=== PATIENT | male | born 1955 | race Caucasian/White ===

== ENCOUNTER 2017-05-10 10:42 | Inpatient (IN) | payer OTHER ==
[2017-05-10] MEDS ORDERED: NA CHLORIDE 0.9% 1,000 ML ONE (11:37)
[2017-05-10 12:05] LABS: Urine Blood 3+ (NEG); Urine Glucose TRACE (NEG); Urine Protein 3+ (NEG); Urine pH >8.5 (5.0-7.0)
[2017-05-10 12:18] LABS: Absolute Lymphocytes (CBC) 0.9 K/uL (0.7-4.9); Absolute Monocytes 0.4 K/uL (0.1-1.3); Absolute Neutrophil 5.6 K/uL (1.8-8.0); Basophils % 0.8 % (0-1.3); Eosinophils % 1.1 % (0-4.4); Hematocrit 38.5 % (39.6-49.0); Lymphocytes % 12.3 % (15.3-44.8); MCH 31.7 pg (27.0-35.0); MCV 91.1 fL (80-100); MPV 7.8 fL (7.6-11.3); Monocytes % 5.7 % (3.3-12.3); RBC Red Blood Cell Count 4.22 M/uL (4.33-5.43)
[2017-05-10 12:22] LABS: Protime INR 1.02
[2017-05-10 12:24] LABS: Bicarbonate 28 mEq/L (21-31); Glucose Level 107 mg/dL (65-120); Potassium 3.8 mEq/L (3.6-5.0); Sodium Level 138 mEq/L (135-145)
[2017-05-10 12:25] LABS: BUN Blood Urea Nitrogen 13 mg/dL (6-20); Glomerular Filtration Rate > 90 mL/min (=/>90)
[2017-05-10] MEDS ORDERED: NACL 0.9% IRR SOLN 2,000 ML IRR ONE ×4 (13:01→16:18)
--- NOTE | 2017-05-10 13:33 | RAD REPORT ---
EXAM DESCRIPTION: CT - Abdomen Pelvis W Contrast - 05/10/2017 1:14 pm CLINICAL HISTORY: Abdominal pain with nausea. COMPARISON: none. TECHNIQUE: Computed axial tomography of the abdomen pelvis was obtained. 100 cc Isovue-300 was admin istered intravenously. Oral contrast was not requested which limits evaluation of bowel. All CT scans are performed using dose optimization technique as appropriate and may include automated exposure control or mA/KV adjustment according to patient size. FINDINGS: The liver, pancreas, and adrenals appear unremarkable. The spleen measures 15 centimeters Mild bilateral hydronephrosis is present. Parapelvic renal cysts are present. A 7 centimeter mass is present within the posterior bladder. The prostate gland is mildly enlarged. There is no evidence of diverticulitis. The appendix is normal. Small bilateral inguinal hernias cont ain fat. 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 A less like ly consideration is that this represents the mass arises from the prostate gland. Partial compression upon the ureterovesical junctions result in mild hydroureter/hydronephrosis
--- NOTE | 2017-05-10 14:13 | ER ---
Nurse's Notes [facility] Name: Herrera Liao Age: 61 yrs Sex: Male : 1955 Arrival Date: 05/10/2017 Time: 10:45 Bed 13 Private MD: Bruce Eng F Diagnosis: Hematuria;7cm bladder mass Presentation: 05/10 10:47 Presenting complaint: Patient states: Painless hematuria since this morning x2. la1 Transition of care: patient was not received from another setting of care. Onset of symptoms was May 10, 2017. Care prior to arrival: None. 10:47 Method Of Arrival: Ambulatory la1 10:47 Acuity: CARLOS 3 la1 Historical: - Allergies: 10:50 No Known Allergies; la1 - Home Meds: 10:50 Synthroid 125 mcg Oral tab 1 tab once daily [Active]; Zocor 20 mg Oral tab 1 tab once la1 daily [Active]; - PMHx: 10:50 Kidney stones; High Cholesterol; la1 - PSHx: 10:50 hip sx; la1 - Immunization history:: Adult Immunizations up to date. - Social history:: Smoking status: Patient/guardian denies using tobacco. Screenin:15 Abuse screen: Denies threats or abuse. Denies injuries from another. Nutritional ph screening: No deficits noted. Tuberculosis screening: No symptoms or risk factors identified. Fall Risk None identified. Assessment: 11:10 General: Appears in no apparent distress. comfortable, slender, well groomed, Behavior ph is calm, cooperative, appropriate for age, Denies fever, feeling ill. Pain: Denies pain. Complains of pain in states, " I have a full feeling in my lower stomach but not really pain.". Neuro: Level of Consciousness is awake, alert, obeys commands, Oriented to person, place, time, situation. Cardiovascular: Denies chest pain, shortness of breath, Capillary refill < 3 seconds in bilateral fingers Patient's skin is warm and dry. Respiratory: Airway is patent Respiratory effort is even, unlabored, Respiratory pattern is regular, symmetrical, Denies shortness of breath. GI: No signs and/or symptoms were reported involving the gastrointestinal system. : Urine is vik blood, multiple clots noted Reports "difficulty" voiding. Derm: Skin is intact, is healthy with good turgor, Skin is pink, warm \\T\\ dry. Musculoskeletal: Circulation, motion, and sensation intact. Range of motion: intact in all extremities. 12:30 Reassessment: Patient appears in no apparent distress at this time. Patient and/or ph family updated on plan of care and expected duration. Pain level reassessed. Patient is alert, oriented x 3, equal unlabored respirations, skin warm/dry/pink. Pt resting quietly, awaiting lab results and CT scan, approx 250 mL dark bloody urine emptied from urinal at bedside. 13:45 Reassessment: Patient appears in no apparent distress at this time. Patient and/or ph family updated on plan of care and expected duration. Pain level reassessed. Patient is alert, oriented x 3, equal unlabored respirations, skin warm/dry/pink. 3 way Pearson inserted for bladder irrigation per provider order, pt tolerated well, 650 mL bloody urine returned awaiting room assignment. 15:00 Reassessment: Patient appears in no apparent distress at this time. Patient and/or ph family updated on plan of care and expected duration. Pain level reassessed. Patient is alert, oriented x 3, equal unlabored respirations, skin warm/dry/pink. Pt taken to inpatient room via stretcher. Vital Signs: 10:50 BP 157 / 95; Pulse 87; Resp 16; Temp 97.2; Pulse Ox 100% on R/A; Weight 83.01 kg; la1 Height 5 ft. 10 in. (177.80 cm); 11:21 BP 151 / 105; Pulse 83; Resp 16; Pulse Ox 100% on R/A; mh5 12:30 BP 137 / 95; Pulse 82; Resp 18; Pulse Ox 99% on R/A; ph 13:30 BP 120 / 97; Pulse 84; Resp 18; Temp 97.5; Pulse Ox 98% on R/A; ph 14:30 BP 131 / 83; Pulse 79; Resp 18; Pulse Ox 99% on R/A; ph 10:50 Body Mass Index 26.26 (83.01 kg, 177.80 cm) la1 ED Course: 10:45 Patient arrived in ED. as 10:45 Bruce Eng MD is Private Physician. as 10:48 Triage completed. la1 10:49 Chastity Parisi FNP-C is PHCP. kb 10:49 Butch Hale MD is Attending Physician. kb 10:50 Arm band placed on left wrist. la1 10:52 Dina Blackwell, RN is Primary Nurse. ph 11:15 Patient has correct armband on for positive identification. Bed in low position. Call ph light in reach. Side rails up X 1. Pulse ox on. NIBP on. Warm blanket given. 11:21 Missed attempt(s): 20 gauge in right antecubital area. mh5 11:33 EKG done, by technical cable jointer. reviewed by Chastity ART. at1 11:43 Radiology exam delayed due to lab results not completed at this time. (BUN/Creatinine). vr 12:21 Inserted saline lock: 18 gauge in right antecubital area, using aseptic technique. hb 13:01 CT completed. Patient tolerated procedure well. Patient moved to CT via wheelchair. sj Patient moved back from CT. 13:54 3-way catheter inserted, using sterile technique, 20 Fr. Patient admitted, IV remains ph in place. 14:11 Bruce Eng MD is Hospitalizing Provider. kb 14:31 Bladder irrigated via Pearson with 2 liters normal saline returned 2 liters blood tinged ph urine. 15:01 Bladder irrigated via Pearson with 2 liters normal saline returned 2 liters blood tinged ph urine. 15:44 Bladder irrigated via Pearson with 2 liters normal saline returned 2 liters blood tinged ph urine Patient tolerated well. 16:05 No provider procedures requiring assistance completed. ph Administered Medications: 12:24 Drug: NS 0.9% 1000 ml Route: IV; Rate: 1000 ml; Site: right antecubital; ph 15:30 Follow up: Response: No adverse reaction; IV Status: Completed infusion ph Outcome: 14:12 Decision to Hospitalize by Provider. kb 16:05 Admitted to Med/surg accompanied by tech, via stretcher, room 220, with chart. ph 16:05 Condition: stable 16:05 Instructed on the need for admit. 16:09 Patient left the ED. ph Signatures: Chastity Parisi FNP-C FNP-Daniella Snow Amelia as Davis, Victoria vr gonzales, Amanda, cloth shrinking machine operator EKG Tat1 Luis Fernando Collier RN RN [email or web address] Dina Blackewll RN RN Edwige Squires RN RN Rima Rhoades [facility] Corrections: (The following items were deleted from the chart) 14:31 13:54 Bladder irrigated via Pearson with 1 liter normal saline returned vik blood ph ph 15:45 15:43 Recheck of ph ph
--- NOTE | 2017-05-10 14:14 | EDPHYS ---
Physician Documentation [facility] Name: Herrera Liao Age: 61 yrs Sex: Male : 1955 Arrival Date: 05/10/2017 Time: 10:45 Bed 13 Private MD: Bruce Eng F ED Physician Butch Hale HPI: 05/10 11:12 This 61 yrs old Male presents to ER via Ambulatory with complaints of Urinary kb Problem. 11:12 The patient has not experienced similar symptoms in the past. The patient has not kb recently seen a physician. 11:12 The patient presents with urinary symptoms, hematuria. Onset: The symptoms/episode kb began/occurred this morning. Modifying factors: The symptoms are alleviated by nothing, the symptoms are aggravated by urinating. Associated signs and symptoms: Pertinent positives: hematuria, Pertinent negatives: abdominal pain, constipation, diarrhea, dysuria, fever, nausea, vomiting. Severity of symptoms: At their worst the symptoms were moderate, in the emergency department the symptoms are unchanged. Pt reports hematuria that started this morning. Has not had similar symptoms in the past. Denies pain. States it is getting harder to urinate. . Historical: - Allergies: 10:50 No Known Allergies; la1 - Home Meds: 10:50 Synthroid 125 mcg Oral tab 1 tab once daily [Active]; Zocor 20 mg Oral tab 1 tab once la1 daily [Active]; - PMHx: 10:50 Kidney stones; High Cholesterol; la1 - PSHx: 10:50 hip sx; la1 - Immunization history:: Adult Immunizations up to date. - Social history:: Smoking status: Patient/guardian denies using tobacco. ROS: 11:11 Constitutional: Negative for fever, chills, and weight loss, Cardiovascular: Negative kb for chest pain, palpitations, and edema, Respiratory: Negative for shortness of breath, cough, wheezing, and pleuritic chest pain, Abdomen/GI: Negative for abdominal pain, nausea, vomiting, diarrhea, and constipation, Back: Negative for injury and pain, MS/Extremity: Negative for injury and deformity, Skin: Negative for injury, rash, and discoloration, Neuro: Negative for headache, weakness, numbness, tingling, and seizure. 11:11 : Positive for hematuria. Exam: 11:11 Constitutional: This is a well developed, well nourished patient who is awake, alert, kb and in no acute distress. Head/Face: Normocephalic, atraumatic. Chest/axilla: Normal chest wall appearance and motion. Nontender with no deformity. No lesions are appreciated. Cardiovascular: Regular rate and rhythm with a normal S1 and S2. No gallops, murmurs, or rubs. Normal PMI, no JVD. No pulse deficits. Respiratory: Lungs have equal breath sounds bilaterally, clear to auscultation and percussion. No rales, rhonchi or wheezes noted. No increased work of breathing, no retractions or nasal flaring. Back: No spinal tenderness. No costovertebral tenderness. Full range of motion. Male : Normal genitalia with no discharge or lesions. Skin: Warm, dry with normal turgor. Normal color with no rashes, no lesions, and no evidence of cellulitis. MS/ Extremity: Pulses equal, no cyanosis. Neurovascular intact. Full, normal range of motion. Neuro: Awake and alert, GCS 15, oriented to person, place, time, and situation. Cranial nerves II-XII grossly intact. Motor strength 5/5 in all extremities. Sensory grossly intact. Cerebellar exam normal. Normal gait. 11:11 Abdomen/GI: Inspection: abdomen appears normal, Bowel sounds: normal, in all quadrants, kb Palpation: soft, in all quadrants, mild abdominal tenderness, in the left lower quadrant, radiates to left side of groin when LLQ palpated. Vital Signs: 10:50 BP 157 / 95; Pulse 87; Resp 16; Temp 97.2; Pulse Ox 100% on R/A; Weight 83.01 kg; la1 Height 5 ft. 10 in. (177.80 cm); 11:21 BP 151 / 105; Pulse 83; Resp 16; Pulse Ox 100% on R/A; mh5 12:30 BP 137 / 95; Pulse 82; Resp 18; Pulse Ox 99% on R/A; ph 13:30 BP 120 / 97; Pulse 84; Resp 18; Temp 97.5; Pulse Ox 98% on R/A; ph 14:30 BP 131 / 83; Pulse 79; Resp 18; Pulse Ox 99% on R/A; ph 10:50 Body Mass Index 26.26 (83.01 kg, 177.80 cm) la1 MDM: 10:50 Patient medically screened. kb 11:12 Data reviewed: vital signs, nurses notes. Data interpreted: Pulse oximetry: on room air kb is 100 %. Interpretation: normal. 13:48 Counseling: I had a detailed discussion with the patient and/or guardian regarding: the kb historical points, exam findings, and any diagnostic results supporting the discharge/admit diagnosis, lab results, radiology results, the need for further work-up and treatment in the hospital. Physician consultation: Megan Mims MD was contacted at 13:49, regarding consult, patient's condition, and will see patient in inpatient room. 13:50 Physician consultation: Bruce Eng MD was called at 13:50, message left, awaiting kb return phone call. 05/10 10:49 Order name: Urine Microscopic Only kb 05/10 11:06 Order name: CBC with Diff kb 05/10 11:06 Order name: Basic Metabolic Panel kb 05/10 11:06 Order name: Protime (+inr) kb 05/10 11:06 Order name: Ptt, Activated kb 05/10 11:06 Order name: Type And Screen 05/10 11:06 Order name: CT Abd/Pelvis - W/Contrast kb 05/10 11:23 Order name: Urine Dipstick--Ancillary (enter results) bd 05/10 12:06 Order name: Urine Dipstick-Ancillary; Complete Time: 12:09 EDMS 05/10 12:25 Order name: Basic Metabolic Panel; Complete Time: 12:39 EDMS 05/10 12:36 Order name: Protime (+INR); Complete Time: 12:39 EDMS 05/10 12:36 Order name: PTT, Activated Partial Thromb; Complete Time: 12:39 EDMS 05/10 12:36 Order name: CBC with Automated Diff; Complete Time: 12:39 EDMS 05/10 13:10 Order name: Type and Screen; Complete Time: 13:15 EDMS 05/10 10:49 Order name: Urine Dipstick-Ancillary (obtain specimen); Complete Time: 11:10 kb 05/10 11:06 Order name: IV Start; Complete Time: 12:25 kb 05/10 11:54 Order name: Bladder Irrigation; Complete Time: 13:59 kb 05/10 11:54 Order name: Pearson-Three way; Complete Time: 13:59 kb 05/10 13:33 Order name: CT; Complete Time: 13:33 EDMS Administered Medications: 12:24 Drug: NS 0.9% 1000 ml Route: IV; Rate: 1000 ml; Site: right antecubital; ph 15:30 Follow up: Response: No adverse reaction; IV Status: Completed infusion ph Disposition: 17:53 Co-signature as Attending Physician, Butch Hale MD. rn Disposition: 05/10/17 14:12 Hospitalization ordered by Bruce Eng for Inpatient Admission. Preliminary diagnosis are Hematuria, 7cm bladder mass. - Bed requested for Telemetry/MedSurg (Inpatient). - Status is Inpatient Admission. ph - Condition is Stable. - Problem is new. - Symptoms are unchanged. UTI on Admission? Yes Signatures: Dispatcher [employer] EDMS Chastity Parisi, RUBENS MANAGER GRANT-Ana Franco Roman, MD MD rn Attema, Lee, RN RN laDina Carias RN RN ph Corrections: (The following items were deleted from the chart) 11:12 11:11 Constitutional: This is a well developed, well nourished patient who is awake, kb alert, and in no acute distress. Head/Face: Normocephalic, atraumatic. Chest/axilla: Normal chest wall appearance and motion. Nontender with no deformity. No lesions are appreciated. Cardiovascular: Regular rate and rhythm with a normal S1 and S2. No gallops, murmurs, or rubs. Normal PMI, no JVD. No pulse deficits. Respiratory: Lungs have equal breath sounds bilaterally, clear to auscultation and percussion. No rales, rhonchi or wheezes noted. No increased work of breathing, no retractions or nasal flaring. Abdomen/GI: Soft, non-tender, with normal bowel sounds. No distension or tympany. No guarding or rebound. No evidence of tenderness throughout. Back: No spinal tenderness. No costovertebral tenderness. Full range of motion. Male : Normal genitalia with no discharge or lesions. Skin: Warm, dry with normal turgor. Normal color with no rashes, no lesions, and no evidence of cellulitis. MS/ Extremity: Pulses equal, no cyanosis. Neurovascular intact. Full, normal range of motion. Neuro: Awake and alert, GCS 15, oriented to person, place, time, and situation. Cranial nerves II-XII grossly intact. Motor strength 5/5 in all extremities. Sensory grossly intact. Cerebellar exam normal. Normal gait. kb
[2017-05-10 17:18] LABS: Urine Bacteria NONE SEEN /HPF (NONE SEEN); Urine Culture Reflex Order REFLEXED; Urine Mucus LIGHT /HPF (NONE SEEN); Urine RBC LOADED /HPF (NONE SEEN)
[2017-05-10] MEDS: NA CHLORIDE 0.9% 1,000 ML IV SCH ×2 (18:04→22:25)
[2017-05-10] MEDS: CEFTRIAXONE/SWI 1gm 1 GM/10 ML SYR IV SCH (18:04)
[2017-05-10] MEDS: NACL 0.9% IRR SOLN 2,000 ML IRR ONE ×2 (18:04→18:05)
--- NOTE | 2017-05-10 21:34 | RAD REPORT ---
EXAM DESCRIPTION: Eric De La Torre (2 Views)05/10/2017 8:40 pm CLINICAL HISTORY: Abdominal pain/preop COMPARISON: None FINDINGS: A 10 millimeter nodular opacity overlies the left base. The remainder of the lungs appear clear of acute infiltrate. The heart is normal size IMPRESSION: 10 millimeter nodular opacity overlying the left base may either represent a pulmonary n odule or nipple shadow.
[2017-05-10] MEDS: SODIUM CHL 0.9% IRR SOLN 2000 ML IRR SCH (22:10)
--- NOTE | 2017-05-10 22:59 | CON ---
History Of Present Illness: This is a pleasant 61-year-old gentleman who was in good state of health until last 24 hours, he began experiencing gross non-painless hematuria. Denies smoking. 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 Denies any significant exposure. He came in and a 3-way cat heter was placed, was irrigated, and the urine was still bloody, we were unable to clear. He did hav e a CT scan that showed a 7 mm mass within the bladder, possible bladder neoplasm that is located wit hin the posterior part of the bladder. The prostate gland was mildly enlarged. Appendix was normal. He has small bilateral inguinal hernias, containing fat. He has a gallstone present without any ga llbladder thickening. The mass is causing partial compression of the right UVJ with mild hydroureter onephrosis. Allergies: NO KNOWN DRUG ALLERGIES. Medications: Synthroid, Zocor, and Zyrtec. Past Medical History: Kidney stones passed, high cholesterol, and hypothyroidism. Past Surgical History: Bilateral hip surgery replacement. Immunizations: All immunizations up-to-date. Social History: No smoking. No tobacco use. Review of Systems: Ten point review of systems essentially normal. Physical Examination: Vital Signs: 97.5, 79, 18, 131/83, and pulse ox 99%. HEENT: Atraumatic, normocephalic. Chest: Clear. Heart: S1, S2. Abdomen: Soft, nontender. : Pearson catheter draining reddish-colored urine, however was on the clear side with CBI going. Warren th testicles were descended. CAITLIN deferred at this point. Laboratory Data: CBC: White count is 7.0, H and H 13 and 38, and platelet count is 225. Coags norm al. Chemistry normal. GFR greater than 90. Urine showed 3+ blood, positive nitrites, positive rubén rase, RBC loaded, bacteria none seen. Assessment: Gross hematuria, 7 cm possible bladder tumor clot. The patient is going to need cystosc opy, clot evacuation, possible TURBT. All the general information, alternatives, and risks were give n and the patient wishes to proceed. He was receiving Rocephin tonight and gentamicin on-call in a.m . and wishes to proceed. YAIR/RENATE Voice ID: [id number] Report ID: [id number]
[2017-05-11] MEDS: SODIUM CHL 0.9% IRR SOLN 2000 ML IRR SCH ×4 (00:25→18:02)
[2017-05-11] MEDS ORDERED: GENTAMICIN 80 MG/100 ML BAG 80 MG/100 ML BAG IV ONE ×3 (01:50→03:00)
--- NOTE | 2017-05-11 01:53 | HP ---
Date of Admission: 05/10/2017 History Of Present Illness: A 61-year-old male, who had no previous urinary symptoms or problems, an d no recent urinary symptoms or problems or fever or chills. He noticed this morning that he has blo od while passing urine. It was bloody urination and then he was unable to void. He came to emergenc y room, was found to have gross hematuria and abdominal CAT scan showed a 7 cm mass in his bladder th at is compressing the ureters causing partial hydronephrosis. The patient has no fever, no chills. As mentioned, no abdominal pain. No nausea, no vomiting. Voiced no other complaints. Review of Systems: Cardiovascular: No complaints. Genitourinary: As above, gross hematuria. Otherwise, no other complaints. Gastrointestinal: No complaints. Skeletomuscular: No complaints. NEUROLOGICAL: No complaints. RESPIRATORY: No complaints. Past Medical History: 1.Hypothyroidism. 2.Hyperlipidemia. 3.The patient has passed kidney stone in the past. Social History: The patient has never smoked. No alcohol or IV drug abuse history. Family History: Basically negative and noncontributing. Physical Examination: Vital Signs: Blood pressure 135/75, pulse 70, temperature 97.9. Heart: Regular rate and rhythm. Chest: Clear to auscultation. Abdomen: Soft, benign, nontender. Bowel sounds are normoactive. Extremities: No edema. No cyanosis. Peripheral pulses are felt. NEUROLOGICAL: Alert, oriented, and nonfocal. Grossly intact. Diagnostic Studies: Abdominal and pelvic CT showed 7 cm neoplasm within the bladder with partial com pression upon the ureterovesical junction resulting in hydroureter and hydronephrosis. CBC, white cell count 7, hemoglobin 13.4, hematocrit 38.5, neutrophils 80.1%. PT/INR and PTT within normal. Chemistry, Chem-7 within normal limits. Urinalysis showed 3+ ketones, 3+ blood, nitrite pos itive, and esterase positive 5-10 white BCs, loaded with rbc's, protein 3+. Assessment And Plan: Gross hematuria with bladder neoplasm, [address] Mims was consulted. The gretchen n for cystoscopy in the morning. Meanwhile, we will continue the patient on his home medications and he was put on ceftriaxone, IV antibiotic for possible associated infection and cystitis. Look order s for details. MFS/MODL Voice ID: [id number]
[2017-05-11 04:55] LABS: Absolute Lymphocytes (CBC) 1.1 K/uL (0.7-4.9); Absolute Monocytes 0.6 K/uL (0.1-1.3); Absolute Neutrophil 6.2 K/uL (1.8-8.0); Basophils % 0.7 % (0-1.3); Eosinophils % 1.6 % (0-4.4); Hematocrit 35.4 % (39.6-49.0); Lymphocytes % 13.4 % (15.3-44.8); MCH 32.5 pg (27.0-35.0); MCV 91.2 fL (80-100); MPV 8.1 fL (7.6-11.3); Monocytes % 7.1 % (3.3-12.3); RBC Red Blood Cell Count 3.88 M/uL (4.33-5.43)
[2017-05-11 05:07] LABS: BUN Blood Urea Nitrogen 10 mg/dL (6-20); Bicarbonate 28 mEq/L (21-31); Glomerular Filtration Rate > 90 mL/min (=/>90); Glucose Level 95 mg/dL (65-120); Potassium 3.8 mEq/L (3.6-5.0); Sodium Level 141 mEq/L (135-145)
--- NOTE | 2017-05-11 07:23 | EKG ---
Test Date: 2017-05-10 Test Time: 11:26:13 Senior [employer] Market Coordinator: MAE MEASUREMENT RESULTS: Intervals: Rate: 78 SD: 154 QRSD: 102 QT: 412 QTc: 469 Dale: P: 42 SD: 154 QRS: 16 T: 47 INTERPRETIVE STATEMENTS: Normal sinus rhythm Normal ECG Compared to ECG 01/05/2017 15:03:58 Incomplete right bundle-branch block no longer present ST (T wave) deviation no longer present Electronically Signed On 05-11-17 07:22:06 CDT by Bebeto Rubin
[2017-05-11] MEDS: NA CHLORIDE 0.9% 1,000 ML IV SCH ×3 (07:56→20:16)
[2017-05-11] MEDS ORDERED: PROPOFOL 200 MG/20 ML VIAL IV ONE (08:05)
[2017-05-11] MEDS ORDERED: FENTANYL CITR 100 MCG/2 ML ONE (08:07)
[2017-05-11] MEDS ORDERED: LIDOCAINE 2% MPF 5 ML VIAL ONE (08:07)
[2017-05-11] MEDS ORDERED: Ringers Lactate 1,000 ML IV ONE (08:15)
[2017-05-11] MEDS ORDERED: Gentamicin Inj 80 MG in NA CHLORIDE 0.9% 100 ML IVPB ONE (09:00)
[2017-05-11] MEDS: CEFTRIAXONE/SWI 1gm 1 GM/10 ML SYR IV SCH (09:00)
--- NOTE | 2017-05-11 11:24 | OP ---
Surgeon: Megan Mims MD Anesthesiologist: Dr. Ram. Preoperative Diagnosis: Gross hematuria. Postoperative Diagnosis: Bladder tumor. Procedures Performed: Cystoscopy, transurethral resection of bladder tumor about a 2 cm papillary tumor just medial to the right orifice and also resection of the approximately 1 cm bladder neck polyp in the anterior right bladder neck area. Anesthesia: General. Estimated Blood Loss: Minimal. Replacement: See record. Path Specimen: Superficial bladder tumor medial to the right orifice and deep biopsy medial to the right orifice and biopsy of the bladder neck also. Complications: None. Drains Placed: A 20-Greenlandic 3-way hematuria catheter for the procedure. Indications: The patient is a 61-year-old gentleman with gross hematuria that was unable to clear overnight with a 3-way CBI, had a 7 cm mass in the bladder that was seen on CAT scan. He was given all the general information, alternatives, and risks, wishes to proceed. Description Of Procedure: He was properly identified, taken to the operative suite, received perioperative antibiotics, received general anesthesia. Legs were placed in supine lithotomy position. Area was prepped and draped. Cystoscopy was performed first with a regular 23-Greenlandic cystoscope and 30- degree lens. Penile, bulbar, and prostatic urethra were normal. Prostate was not severely obstructed. Once in the bladder, there was a large clot seen. We then placed the resectoscope sheath, 24-Greenlandic, and irrigated with Matteo syringe to remove all the clots. Once all the clots were removed, we were able to do a cystoscopy, seen a papillary tumor just medial to the right orifice that was actively bleeding. A 70-degree lens was used to perform curran cystoscopy , showed another small polypoid lesion in the right anterior bladder neck. We then used the resectoscope to resect the papillary lesion that was medial to the right orifice and then took a deep biopsy and then also took a biopsy of the bladder neck area. All the areas were coagulated and path specimen were sent in 3 separate specimens. Good hemostasis was achieved. We then placed a 10 cc lubricating jelly into the urethra after the scope was removed and placed a 3-way 20-Greenlandic hematuria catheter per urethra into the bladder with clear return of urine. Pearson bag was connected and normal saline CBI was began. The patient went to recovery room in stable condition. PB/MODL Voice ID: [id number] Report ID: [id number] JULIANE
[2017-05-11] MEDS: ACETAMINOPHEN 500 MG TAB PO PRN ×2 (12:21→23:04)
--- NOTE | 2017-05-11 13:54 | PN ---
Subjective: The patient feels well. Has no new complaints. Objective: Vital Signs: Blood pressure 120/75, pulse 65, temperature 98.9. Heart: Regular rate and rhythm. Chest: Clear to auscultation. Abdomen: Soft, benign. Neurological: Alert, oriented, intact. Extremities: No edema. No cyanosis. Peripheral pulses are felt. Laboratory Data: White cell count 8000, hemoglobin 12.6, hematocrit 35.4, platelets 213. Chem-7; ca lcium 8.3. The rest is nonrevealing that is within normal. Assessment And Plan: The patient has had cystoscopy today preliminary that the patient had polyps. He had an irrigation and cleaning of his bladder, clot evacuation. Pathology still pending. We will continue the patient on current antibiotics and orders pending Dr. Mims further recommendation. Sarah crews will be as per Dr. Mims recommendation. MFS/MODL Voice ID: [id number] Report ID: [id number]
[2017-05-12] MEDS: SODIUM CHL 0.9% IRR SOLN 2000 ML IRR SCH (07:04)
[2017-05-12] MEDS: NA CHLORIDE 0.9% 1,000 ML IV SCH (07:56)
[2017-05-12] MEDS: CEFTRIAXONE/SWI 1gm 1 GM/10 ML SYR IV SCH (10:15)
--- NOTE | 2017-05-12 11:40 | PN ---
Subjective: The patient feels great. Urine is crystal clear. Ready to go home. Objective: Vital Signs: Stable. 98.5, 64, 18, 101/51, 95% sat. Laboratory Data: No new laboratories. Urine clear. Assessment: Status post transurethral resection of bladder tumor, postop day 1. Hospital does not have mitomycin C, therefore I will give him something in the morning in my office. Therefore, I will leave the catheter in. We will plug the third irrigation port and send him home. Discharge Medications: Ultram 50 mg 1 p.o. q.6 hours p.r.n. pain #12, Bactrim DS 1 p.o. b.i.d. #6. Follow up in my office at 8:00 a.m. in the morning. YAIR/RENATE Voice ID: [id number] Report ID: [id number] MTDD
== END 2017-05-12 12:12 | disposition home or self-care (01) | DRG 670 ==
LOC: ER 10:42 → ERHOLD 14:15 → 2ND 15:05
PROVIDERS: ADMIT Internal Medicine; ATTEND Internal Medicine
PROC: 0T9B70Z Drainage of Bladder with Drainage Device, Via Natural or Artificial Opening (ICD-10-PCS; 2017-05-10)
PROC: 0TBB8ZX Excision of Bladder, Via Natural or Artificial Opening Endoscopic, Diagnostic (ICD-10-PCS; 2017-05-11)
PROC: 0TBC8ZX Excision of Bladder Neck, Via Natural or Artificial Opening Endoscopic, Diagnostic (ICD-10-PCS; 2017-05-11)
PROC: 0TBB8ZX Excision of Bladder, Via Natural or Artificial Opening Endoscopic, Diagnostic (ICD-10-PCS; principal; 2017-05-11 08:00)
DX: D41.4 Neoplasm of uncertain behavior of bladder (principal); R31.0 Gross hematuria; E03.9 Hypothyroidism, unspecified; E78.5 Hyperlipidemia, unspecified
CPT/HCPCS: 36415; 51700; 71046; 74177; 80048; 81003; 81015; 85025; 85610; 85730; 86850; 86900; 86901; 87086; 87088; 88305; 93005; 96360; 96361; 99285; J0696; J1580; J3010; J7030; Q9967

== ENCOUNTER 2022-07-05 19:58 | Emergency (ER) | payer OTHER ==
--- OUTSIDE RECORDS SUMMARY | 2022-07-05 20:03 | XMS REPORT | Continuity of Care Document ---
:1955 Author Organization [facility] t Address [address] [place] [address] [address] [place] [address] Care Team Providers Name Role Phone Bruce Engsen Primary Care Physician Zen Fitzgerald RN Attending Clinician Unavailable Only, Cullen Db Test Attending Clinician Unavailable Lolis Fitch Attending Clinician Doctor Unassigned, [place] Attending Clinician Unavailable Payers Payer Name Policy Type Policy Number Effective Date Expiration Date S ource Problems Condition Condition Condition Status Onset Resolution Last Treating Co mments Source Name Details Category Date Date Treatment Clinician Date No known No known Disease Unive rs active active ity of problems problems [facility] Allergies, Adverse Reactions, Alerts This patient has no known allergies or adverse reactions. Social History Social Habit Start Date Stop Date Quantity Comments Source Exposure to 2021-08-05 2021-08-15 Not sure [facility] SARS-CoV-2 (event) 00:00:00 11:18:00 [facility] Alcohol intake 2018-04-16 2018-04-16 [facility] 00:00:00 00:00:00 [facility] Tobacco use and 2013-11-05 2013-11-05 Never used [facility] exposure 00:00:00 00:00:00 [facility] Sex Ass[birth year] [facility] 00:00:00 00:00:00 [facility] Smoking Status Start Date Stop Date Source Never smoker [facility] Medications Ordered Filled Start Stop Current Ordering Indication Dosage Frequency Signature Comments Components Source Medication Medication Date Date Medication? Clinician (SIG) Name Name aspirin 325 Yes 325mg Take 325 U nivers mg tablet 2-27 mg by ity of 18:18: mouth [place] 56 daily. Medical Branch aspirin 325 2018- Yes 325mg Take 325 U nivers mg tablet 2-27 mg by ity of 18:18: mouth [place] 56 daily. Medical Branch aspirin 325 Yes 325mg Take 325 U nivers mg tablet 2-27 mg by ity of 18:18: mouth [place] 56 daily. Medical Branch metroNIDAZO Yes Juan fritz LE (FLAGYL) 8-07 ity of 500 mg 00:00: [place] tablet 00 [facility] metroNIDAZO Yes Juan fritz LE (FLAGYL) 8-07 ity of 500 mg 00:00: [place] tablet 00 [facility] metroNIDAZO Yes Juan fritz LE (FLAGYL) 8-07 ity of 500 mg 00:00: [place] tablet 00 [facility] levothyroxi Yes Juan fritz ne 9-06 ity of (SYNTHROID) 00:00: [place] 125 mcg 00 Medical tablet Branch levothyroxi Yes Juan fritz ne 9-06 ity of (SYNTHROID) 00:00: [place] 125 mcg 00 Medical tablet Branch levothyroxi Yes Juan fritz ne 9-06 ity of (SYNTHROID) 00:00: [place] 125 mcg 00 [facility] Branch simvastatin Yes Juan fritz (ZOCOR) 20 8-12 ity of mg tablet 00:00: [place] 00 [facility] simvastatin Yes Juan fritz (ZOCOR) 20 8-12 ity of mg tablet 00:00: [place] 00 [facility] simvastatin Yes Juan s (ZOCOR) 20 8-12 ity of mg tablet 00:00: [place] 00 Medical [place] Procedures Procedure Date / Time Performed Performing Clinician [facility] e ASSIGNMENT OF BENEFITS 2021-08-15 16:20:05 Doctor Unassigned, No [facility] Name Medical Branch Encounters Start End Encounter Admission Attending Care Care Encounter Source Date/Time Date/Time Type Type Clinicians Facility Department ID 2021-08-16 2021-08-16 Letter MIRNA Fitzgerald [id number] [facility] 00:00:00 00:00:00 (Out) Zen HUNT [id number] it y of HOSPITAL [id number] Emanuel as [id number] [facility] 019 Branch 2021-08-15 2021-08-15 Laboratory Only, Ang Db Test [facility] [id number] [facility] 11:15:00 11:30:00 Only [place], [facility] [id number] ity of [place] [id number] Emanuel as GLADYS?BLEA [id number] [address] MEDICAL OFFICE BUILDING 2021-08-15 2021-08-15 Orders Doctor MIRNA [id number] Univers 00:00:00 00:00:00 Only Unassigned, MARILEE [id number] ity of [place] [facility] [id number] Emanuel as [id number] [facility] 009 Branch Results This patient has no known results.
[2022-07-05 20:38] LABS: Absolute Lymphocytes (CBC) 1.3 K/uL (0.7-4.9); Hematocrit 38.7 % (39.6-49.0); Lymphocytes % 13.3 % (15.3-44.8); MCV 89.1 fL (80-100); MPV 7.2 fL (7.6-11.3); RBC Red Blood Cell Count 4.35 M/uL (4.33-5.43)
[2022-07-05 20:40] LABS: Protime INR 1.06
[2022-07-05] MEDS ORDERED: ADENOSINE 6 MG/ 2ML VIAL IV ONE ×2 (20:40→20:45)
[2022-07-05] MEDS ORDERED: NA CHLORIDE 0.9% 1,000 ML ONE (20:41)
[2022-07-05 20:56] LABS: Albumin 4.2 g/dL (3.4-5.0); Bilirubin Direct 0.3 mg/dL (0-0.2); Bilirubin Indirect, Calculated 0.9 mg/dL (0.2-0.8); Bilirubin Total 1.2 mg/dL (0.2-1.0); Magnesium 2.2 mg/dL (1.6-2.4); Potassium 3.6 mEq/L (3.5-5.1); Protein, Total 7.6 g/dL (6.4-8.2); Troponin High Sensitivity 5.7 pg/mL (<58.9)
--- NOTE | 2022-07-05 21:51 | ER ---
Nurse's Notes [facility] Name: Herrera Liao Age: 66 yrs Sex: Male : 1955 Arrival Date: 07/05/2022 Time: 19:58 Bed 3 Private MD: Diagnosis: Supraventricular tachycardia, now resolved Presentation: 07/05 20:00 Chief complaint: Patient states: pt noticed a difference in pulse at 1855; denies CP, vg1 states SOB, has hx of SVT, heart rate at home was 165. Risk Assessment: Do you want to hurt yourself or someone else? Patient reports no desire to harm self or others. 20:00 Acuity: CARLOS 2 vg1 20:00 Coronavirus screen: Vaccine status: Patient reports receiving the 2nd dose of the covid vg1 vaccine. Client denies travel out of the [place] in the last 14 days. Ebola Screen: Patient negative for fever greater than or equal to 101.5 degrees Fahrenheit, and additional compatible Ebola Virus Disease symptoms Patient denies exposure to infectious person. Patient denies travel to an Ebola-affected area in the 21 days before illness onset. Initial Sepsis Screen: Does the patient meet any 2 criteria? HR > 90 bpm. Does the patient have a suspected source of infection? No. Patient's initial sepsis screen is negative. Onset of symptoms was July 05, 2022. 20:00 Method Of Arrival: Ambulatory vg1 Triage Assessment: 20:00 General: Appears comfortable, Behavior is cooperative. Pain: Denies pain. Neuro: Level vg1 of Consciousness is awake, alert, obeys commands, Oriented to person, place, time, situation. Cardiovascular: Reports shortness of breath, Denies chest pain. Respiratory: Airway is patent Respiratory effort is even, unlabored. Historical: - Allergies: 20:22 Morphine; vg1 - PMHx: 20:22 High Cholesterol; Kidney stones; SVT; vg1 - Immunization history:: Client reports receiving the 2nd dose of the Covid vaccine. - Social history:: Smoking status: Patient denies any tobacco usage or history of. Screenin:05 [facility] ED Fall Risk Assessment (Adult) History of falling in the last 3 months, kd3 including since admission No falls in past 3 months (0 pts) Confusion or Disorientation No (0 pts) Intoxicated or Sedated No (0 pts) Impaired Gait No (0 pts) Mobility Assist Device Used No (0 pt) Altered Elimination No (0 pt) Score/Fall Risk Level 0 - 2 = Low Risk Maintained a safe environment. Abuse screen: Denies threats or abuse. Denies injuries from another. Nutritional screening: No deficits noted. Tuberculosis screening: No symptoms or risk factors identified. Assessment: 20:30 General: Appears in no apparent distress. Behavior is calm, cooperative. Pain: Denies kd3 pain. Neuro: Level of Consciousness is awake, alert, obeys commands, Oriented to person, place, time, situation. Cardiovascular: Patient's skin is warm and dry. Rhythm is SVT. 20:41 Cardiovascular: Rhythm is sinus rhythm. kd3 21:04 Reassessment: Patient is alert, oriented x 3, equal unlabored respirations, skin kd3 warm/dry/pink. Patient denies pain at this time. Patient states feeling better. Patient states symptoms have improved. General: pt remains in NSR. Pt reports feeling better . Pain: Denies pain. Cardiovascular: Rhythm is sinus rhythm. 21:06 Pain: Pain began. kd3 Vital Signs: 20:00 BP 124 / 95; Pulse 148; Resp 18; Temp 98.8(TE); Pulse Ox 100% ; Weight 81.65 kg; Height vg1 5 ft. 10 in. ; 20:41 BP 119 / 93; Pulse 91; Resp 19; Pulse Ox 98% on R/A; kd3 21:05 BP 117 / 82; Pulse 74; Resp 19; Pulse Ox 99% on R/A; kd3 22:08 BP 119 / 89; Pulse 67; Resp 15; Pulse Ox 98% on R/A; kd3 20:00 Body Mass Index 25.83 (81.65 kg, 177.8 cm) vg1 ED Course: 20:00 Arm band placed on. vg1 20:03 Patient arrived in ED. ag3 20:09 Taryn Delaney MD is Attending Physician. sp3 20:22 Triage completed. vg1 20:39 Annette Saleem, BETSEY is Primary Nurse. kd3 20:40 Basic Metabolic Panel Sent. kd3 20:40 LFT's Sent. kd3 20:40 Magnesium Sent. kd3 20:40 NT PRO-BNP Sent. kd3 20:40 PT-INR Sent. kd3 20:40 Troponin HS Sent. kd3 20:45 XRAY Chest (1 view) In Process Unspecified. EDMS 21:05 Patient has correct armband on for positive identification. Placed in gown. Bed in low kd3 position. Call light in reach. Client placed on continuous cardiac and pulse oximetry monitoring. NIBP monitoring applied. gas mask inspector on. Administered Medications: 20:40 Drug: Adenocard IVP 6 mg Route: IVP; Site: left antecubital; kd3 22:15 Follow up: Response: No adverse reaction; Cardiac rhythm changed kd3 Medication: 21:06 VIS not applicable for this client. kd3 Outcome: 21:50 Discharge ordered by . sp3 22:15 Patient left the ED. kd3 Signatures: Dispatcher [employer] EDMS Annika Monroe ag3 Lucy Estrada, RN RN vg1 Taryn Delaney MD MD sp3 Annette Saleem RN RN kd3
--- NOTE | 2022-07-05 21:51 | EDPHYS ---
Physician Documentation [facility] Name: Herrera Liao Age: 66 yrs Sex: Male : 1955 Arrival Date: 07/05/2022 Time: 19:58 Bed 3 Private MD: ED Physician Taryn Delaney HPI: 07/05 20:27 This 66 yrs old Male presents to ER via Ambulatory with complaints of Irregular Pulse. sp3 20:27 66-year-old male with a history of hyperlipidemia, supraventricular tachycardia sp3 currently on beta-blockers now presents with chief complaint palpitations since 6:55 PM today. He took his metoprolol dose at 710 which has not fixed the issue. He denies any headache, neck pain, chest pain, back pain, shortness of breath, abdominal pain, nausea, vomiting, diarrhea, rash, syncope, near syncope, fever, or any other signs or symptoms on ROS at this time.. Historical: - Allergies: 20:22 Morphine; vg1 - PMHx: 20:22 High Cholesterol; Kidney stones; SVT; vg1 - Immunization history:: Client reports receiving the 2nd dose of the Covid vaccine. - Social history:: Smoking status: Patient denies any tobacco usage or history of. ROS: 20:28 Constitutional: Negative for fever, chills, and weight loss, Eyes: Negative for injury, sp3 pain, redness, and discharge, ENT: Negative for injury, pain, and discharge, Neck: Negative for injury, pain, and swelling, Respiratory: Negative for shortness of breath, cough, wheezing, and pleuritic chest pain, Abdomen/GI: Negative for abdominal pain, nausea, vomiting, diarrhea, and constipation, Back: Negative for injury and pain, MS/Extremity: Negative for injury and deformity, Skin: Negative for injury, rash, and discoloration, Neuro: Negative for headache, weakness, numbness, tingling, and seizure, Psych: Negative for depression, anxiety, suicide ideation, homicidal ideation, and hallucinations, Allergy/Immunology: Negative for hives, rash, and allergies, Endocrine: Negative for neck swelling, polydipsia, polyuria, polyphagia, and marked weight changes. 20:28 All other systems are negative. Exam: 20:28 Constitutional: This is a well developed, well nourished patient who is awake, alert, sp3 and in no acute distress. Head/Face: Normocephalic, atraumatic. Eyes: Pupils equal round and reactive to light, extra-ocular motions intact. Lids and lashes normal. Conjunctiva and sclera are non-icteric and not injected. Cornea within normal limits. Periorbital areas with no swelling, redness, or edema. ENT: Nares patent. No nasal discharge, no septal abnormalities noted. External auditory canals are clear. Oropharynx with no redness, swelling, or masses, exudates, or evidence of obstruction, uvula midline. Mucous membranes moist. Neck: Trachea midline, no thyromegaly or masses palpated, and no cervical lymphadenopathy. Supple, full range of motion without nuchal rigidity, or vertebral point tenderness. No Meningismus. Chest/axilla: Normal chest wall appearance and motion. Nontender with no deformity. No lesions are appreciated. Respiratory: Lungs have equal breath sounds bilaterally, clear to auscultation and percussion. No rales, rhonchi or wheezes noted. No increased work of breathing, no retractions or nasal flaring. Abdomen/GI: Soft, non-tender, with normal bowel sounds. No distension or tympany. No guarding or rebound. No evidence of tenderness throughout. Back: No spinal tenderness. No costovertebral tenderness. Full range of motion. Skin: Warm, dry with normal turgor. Normal color with no rashes, no lesions, and no evidence of cellulitis. MS/ Extremity: Pulses equal, no cyanosis. Neurovascular intact. Full, normal range of motion. Neuro: Awake and alert, GCS 15, oriented to person, place, time, and situation. Cranial nerves II-XII grossly intact. Motor strength 5/5 in all extremities. Sensory grossly intact. Cerebellar exam normal. Normal gait. Psych: Awake, alert, with orientation to person, place and time. Behavior, mood, and affect are within normal limits. 20:28 Cardiovascular: Rate: tachycardic. 20:28 ECG was reviewed by the Attending Physician. EKG demonstrates supraventricular sp3 tachycardia at [address] bpm with nonspecific diffuse ST/T changes without evidence of acute ischemia and mild intraventricular conduction delay. Vital Signs: 20:00 BP 124 / 95; Pulse 148; Resp 18; Temp 98.8(TE); Pulse Ox 100% ; Weight 81.65 kg; Height vg1 5 ft. 10 in. ; 20:41 BP 119 / 93; Pulse 91; Resp 19; Pulse Ox 98% on R/A; kd3 21:05 BP 117 / 82; Pulse 74; Resp 19; Pulse Ox 99% on R/A; kd3 22:08 BP 119 / 89; Pulse 67; Resp 15; Pulse Ox 98% on R/A; kd3 20:00 Body Mass Index 25.83 (81.65 kg, 177.8 cm) vg1 MDM: 20:10 Patient medically screened. sp3 20:29 Data reviewed: vital signs, nurses notes, lab test result(s), EKG, radiologic studies. sp3 ED course: Patient moved to bed 3. Patient has SVT of unknown etiology and we will try to convert with adenosine in standard protocol. Patient has been placed on the monitor to record ECG rhythm during adenosine administration process. Laboratory values, chest x-ray are also pending. If work-up is negative and rhythm is converted, we will safely discharge patient home with follow-up to his sleeve setter safety stitch. I am not highly suspicious for acute coronary syndrome, metabolic abnormality, pulmonary embolism, major vessel disruption including dissection and aneurysm, embolic event, atrial fibrillation, or any other critical findings at this time.. 20:40 ED course: 6 mg of adenosine has successfully converted patient to normal sinus rhythm sp3 with heart rate in the low 80s. Conversion was captured on rhythm strip. Repeat EKG and chest x-ray and labs are pending and if negative will discharge patient safely home with cardiology follow-up.. 20:48 ED course: Repeat EKG status post adenosine demonstrates normal sinus rhythm at 88 bpm sp3 with normal intervals, normal QRS, normal axis, normal ST/T segments without evidence of acute ischemia.. 21:49 ED course: Laboratory values are normal and chest x-ray demonstrates no acute sp3 abnormality. Patient remains in sinus rhythm and we will safely discharge him at this time.. 07/05 20:10 Order name: Basic Metabolic Panel; Complete Time: 21:42 sp3 07/05 20:10 Order name: CBC with Diff; Complete Time: :42 sp3 07/05 20:10 Order name: LFT's; Complete Time: :42 sp3 07/05 20:10 Order name: Magnesium; Complete Time: 21:42 sp3 07/05 20:10 Order name: NT PRO-BNP; Complete Time: 21:42 sp3 07/05 20:10 Order name: PT-INR; Complete Time: :42 sp3 07/05 20:10 Order name: Troponin HS; Complete Time: :42 sp3 07/05 20:10 Order name: XRAY Chest (1 view) sp3 07/05 20:10 Order name: EKG; Complete Time: 20:11 sp3 07/05 20:10 Order name: Cardiac monitoring; Complete Time: 20:39 sp3 07/05 20:10 Order name: EKG - Nurse/Tech; Complete Time: 20:20 sp3 07/05 20:10 Order name: IV Saline Lock; Complete Time: 20:39 sp3 07/05 20:10 Order name: Labs collected and sent; Complete Time: 20:40 sp3 07/05 20:10 Order name: O2 Per Protocol; Complete Time: 20:20 sp3 07/05 20:10 Order name: O2 Sat Monitoring; Complete Time: 20:20 sp3 Administered Medications: 20:40 Drug: Adenocard IVP 6 mg Route: IVP; Site: left antecubital; kd3 22:15 Follow up: Response: No adverse reaction; Cardiac rhythm changed kd3 Disposition Summary: 07/05/22 21:50 Discharge Ordered Location: Home sp3 Condition: Stable sp3 Diagnosis - Supraventricular tachycardia, now resolved sp3 Followup: sp3 - With: Private Physician - When: Upon discharge from the Emergency Department - Reason: If symptoms return Discharge Instructions: - Discharge Summary Sheet sp3 - Supraventricular Tachycardia, Adult sp3 Forms: - Medication Reconciliation Form sp3 - Thank You Letter sp3 - Antibiotic Education sp3 - Prescription Opioid Use sp3 Signatures: Dispatcher [employer] Lucy Rojas RN RN vg1 Taryn Delaney MD MD sp3 Annette Saleem RN RN kd3
[2022-07-05 22:20] VITALS: TEMP 98.8
[2022-07-05 22:24] VITALS: BP 119/89; O2SAT 98
--- NOTE | 2022-07-05 22:52 | RAD REPORT ---
EXAM DESCRIPTION: Raoult Single View07/05/2022 8:43 pm CLINICAL HISTORY: PALPITATIONS COMPARISON: Chest Pa And Lat (2 Views) dated 05/10/2017; Chest Single View dated 01/05/2017 TECHNIQUE: Portable AP view of the chest. FINDINGS: The lungs are clear. No pneumothorax or effusion. The cardiomediastinal contours are unrem arkable. IMPRESSION: No acute cardiopulmonary process.
--- NOTE | 2022-07-08 17:37 | EKG ---
Test Date: 2022-07-05 Test Time: 20:13:58 Credit Risk Modeler: NINA MEASUREMENT RESULTS: Intervals: Rate: 133 [place]: QRSD: 96 QT: 352 QTc: 523 [place]: P: [place]: QRS: 28 T: 70 INTERPRETIVE STATEMENTS: Supraventricular tachycardia Incomplete right bundle branch block Nonspecific ST and T wave abnormality Abnormal ECG Compared to ECG 05/10/2017 11:26:13 Incomplete right bundle-branch block now present ST (T wave) deviation now present Sinus rhythm no longer present Electronically Signed On 07-08-22 17:35:13 CDT by Ubaldo Lee
--- NOTE | 2022-07-09 15:28 | EKG ---
Test Date: 2022-07-05 Test Time: 20:43:45 Vehicle Upholsterer: REED MEASUREMENT RESULTS: Intervals: Rate: 88 [place]: 170 QRSD: 106 QT: 378 QTc: 457 [place]: P: 53 NC: 170 QRS: 12 T: 44 INTERPRETIVE STATEMENTS: Normal sinus rhythm Incomplete right bundle branch block Borderline ECG Compared to ECG 07/05/2022 20:13:58 Supraventricular tachycardia no longer present ST (T wave) deviation no longer present Electronically Signed On 07-09-22 15:22:34 CDT by Eitan Gaspar
== END 2022-07-05 22:15 | disposition home or self-care (01) ==
LOC: ER 19:58
DX: I47.1 Supraventricular tachycardia (principal); E78.00 Pure hypercholesterolemia, unspecified; Z88.5 Allergy status to narcotic agent
CPT/HCPCS: 93005; 85025; 80048; 36415; 83735; 85610; 80076; 84484; 83880; 71045; 96374; 99285; J0153; J7030